=== PATIENT | male | born 1945 | race Caucasian/White ===

== ENCOUNTER → 2016-09-27 | Outpatient (CLI) | payer OTHER ==
[~2016-09-27] MED LIST: FLM4 PO; PRLSR20 PO; SENN-61 PO
[2016-09-27 12:41] LABS: FREE PSA < 0.02 ng/ml; PROSTATE SPECIFIC ANTIGEN 0.182 ng/ml (0.000-4.000)
== END | disposition home or self-care (01) ==
LOC: C.LAB 10:57
PROVIDERS: ATTEND Radiology Radiation Oncology
DX: C61 Malignant neoplasm of prostate (principal)

== ENCOUNTER → 2017-03-31 | Outpatient (CLI) | payer OTHER ==
[2017-03-31 10:36] LABS: COMPLETE YES; EOS % 3.7 %; HEMATOCRIT 40.4 % (42-52); IG% 0.3 %; LYMPH % 30.7 %; MEAN CELL VOLUME 81.6 fL (80-100); MEAN CORPUSCULAR HEMOGLOBIN 28.3 pg (25-34); MEAN CORPUSCULAR HGB CONC 34.7 g/dl (32-36); MEAN PLATELET VOLUME 10.8 fL (7.4-10.4); MONO % 5.2 %; NEUT % 60.1 %; PLATELET COUNT 200 K/uL (130-400); RED BLOOD COUNT 4.95 M/uL (4.7-6.1); WHITE BLOOD COUNT 3.26 K/uL (4.8-10.8)
[2017-03-31 11:10] LABS: ALT/SGPT 20 U/L (12-78); AST/SGOT 15 U/L (15-37); BLOOD UREA NITROGEN 15 mg/dl (7-18); BUN/CREATININE RATIO 14.4 (10-20); CALCIUM 9.2 mg/dl (8.5-10.1); CARBON DIOXIDE 27 mmol/L (21-32); CHLORIDE 104 mmol/L (98-107); CREATININE 1.05 mg/dl (0.60-1.40); GLUCOSE 117 mg/dl (70-99); POTASSIUM 4.2 mmol/L (3.5-5.1); SODIUM 139 mmol/L (136-145)
[2017-03-31 11:15] LABS: ALB/GLOB RATIO 0.9 (0.9-2); ALKALINE PHOSPHATASE 135 U/L (45-117); PROSTATE SPECIFIC ANTIGEN 0.357 ng/ml (0.000-4.000)
== END | disposition home or self-care (01) ==
LOC: C.LAB 09:30
DX: C61 Malignant neoplasm of prostate (principal); I10 Essential (primary) hypertension